=== PATIENT | male | born 1980 | race Asian ===

== ENCOUNTER → 2023-11-26 17:00 | Outpatient (REF) | payer BC, SELFPAY | LOC: RAD 17:00 | PROVIDERS: ATTENDING PHYSICIAN Student in an Organized Health Care Education/Training Program; FAMILY PHYSICIAN Family Medicine | DX: R13.10 Dysphagia, unspecified (principal); J45.20 Mild intermittent asthma, uncomplicated | CPT/HCPCS: 71046 ==